=== PATIENT | female | born 1950 | race Caucasian/White ===

== ENCOUNTER 2017-06-09 14:15 | Emergency (ER) | payer MEDICARE, OTHER ==
[~2017-06-09 14:15] MED LIST: LEVAQUIN500 MG PO; METOPROLOL TART25 MG PO; ULTRAM50 MG PO; Z.0.GLIPIZIDE10 MG PO; Z.0.LISINOPRIL10 MG PO; Z.2.METFORMIN HCL500 PO
--- OUTSIDE RECORDS SUMMARY | 2017-06-09 14:17 | XMS REPORT ---
Author Author [facility] Address Unknown Phone Unavailable Care Team Providers Care Professor Of Archaeology Name Role Phone FARA CAMPOS Unavailable Unavailable Problems This patient has no known problems. Allergies, Adverse Reactions, Alerts This patient has no known allergies or adverse reactions. Medications This patient has no known medications. Results Test Description Test Time Test Comments Text Results Atomic Results Result Comments CHEST SINGLE (PORTABLE) [place] [address] Patient Name: PADMAJA BALDWIN MR #: [id number] : 1950 Age/Sex: 66/F Req #: [id number] Adm Physician: Ordered by: FARA CAMPOS MD Report #: [id number] Location: ER Room/Bed: Procedure: [id number] DX/CHEST SINGLE (PORTABLE) Exam Date: 12/11/16 Exam Time: 1815 REPORT STATUS: Signed PROCEDURE: A single AP view of the chest. COMPARISON: [facility], , CHEST 2 VIEWS, 04/30/2016, 16:21. INDICATIONS: SOB, ELEVATED HEART RATE FINDINGS: Lines/tubes: None. Lungs: The lungs are well inflated and clear. There is no evidence of pneumonia or pulmonary edema. Pleura: There is no pleural effusion or pneumothorax. Heart and mediastinum: The heart and the mediastinum are unremarkable. Bones: No acute bony abnormality. IMPRESSION: 1. No acute cardiopulmonary abnormalities. Tono Gallardo M.D. Dictated by: Tono Gallardo M.D. on 12/11/2016 at 19:00 Electronically approved by: Tono Gallardo M.D. on 12/11/2016 at 19:00 Dictated By: TONO GALLARDO MD 99 Transcribed By: KARIME on 12/11/161899 COPY TO: FARA CAMPOS MD CT CHEST W [place] [address] Patient Name: PADMAJA BALDWIN MR #: [id number] : 1950 Age/Sex: 66/F Req # : [id number] Adm Physician: Ordered by: FARA CAMPOS MD Report #: [id number] Location: ER Room/Bed: Procedure: [id number] CT/CT CHEST W Exam Date: 12/11/16 Exam Time: 0 REPORT STATUS: Signed EXAM: CT Chest WITH contrast 12/11/2016 5:57 PM INDICATION: COMPARISON: None TECHNIQUE: Chest was scanned utilizing a multidetector helical scanner from the lung apex through the level of the adrenal glands without administration of IV contrast. Coronal and sagittal reformations were obtained. PE protocol was performed. IV CONTRAST: 100 mL of Omnipaque 300 COMPLICATIONS: None RADIATION DOSE: Total DLP: 570.3 mGy*cm Estimated effective dose : (DLP x 0.014 x size factor) mSv CTDIvol has been reviewed. It is below the limits set by the Radiation Protocol Committee (RPC). FINDINGS: LINES/ TUBES: None. LUNGS AND AIRWAYS: Scattered calcified granulomas. No focal pulmonary consolidations. Central airways are clear. Tiny tracheal diverticulum. No filling defects to the segmental level. PLEURA: The pleural spaces are clear. HEART AND MEDIASTINUM: The thyroid gland is normal. No mediastinal, hilar or axillary lymphadenopathy. Scattered nonspecific subcentimeter mediastinal lymph nodes. Multiple calcified mediastinal lymph nodes related to prior granulomatous disease. The heart is normal in size.. There is no pericardial effusion. Coronary artery and aortic calcifications. Tortuous aorta. Main pulmonary artery measures 2.7 cm in diameter, within normal limits. The ascending aorta measures 3.2 cm in diameter, within normal limits. UPPER ABDOMEN: Calcified granuloma spleen. Otherwise, limited views of the upper abdomen are unremarkable. BONES: No acute or aggressive osseous lesions. SOFT TISSUES: Unremarkable. IMPRESSION: No pulmonary embolism. No acute thoracic abnormalities. Signed by: DR. Graham Alvarado MD on 12/11/2016 8:09 PM Dictated By: GRAHAM ALVARADO MD 08 Transcribed By: SIMRAN on 12/11/162008 COPY TO: FARA CAMPOS MD
== END 2017-06-09 14:47 | disposition left against medical advice (07) ==
LOC: ER 14:15
DX: Z53.21 Procedure and treatment not carried out due to patient leaving prior to being seen by health care provider (principal)

== ENCOUNTER 2020-02-08 15:21 | Emergency (ER) | payer MEDICARE, OTHER ==
[~2020-02-08] VITALS: Ht 162.6 cm; Wt 74.8 kg
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
[2020-02-08] MEDS ORDERED: TRAMADOL HCL 50 MG TAB PO ONE (16:30)
--- OUTSIDE RECORDS SUMMARY | 2020-02-08 16:34 | XMS REPORT | Continuity of Care Document ---
Author Author [facility] t Organization [facility] Address [address] [place] [address] Phone Unavailable Care Team Providers Care Dental Insurance Coordinator Name Role Phone NO, PCP PCP Unavailable Elpidio CAMPOS Attphys Unavailable Payers Payer Name Policy Type Policy Number Effective Date Expiration Date S ource Medicare A & B [id number] 2015 00:00:00 C [facility] [id number] 2002 00:00:00 2015 00:00 :00 [facility] Problems Condition Name Condition Details Condition Category Status Onset Date Resolution Date Last Treatment Date Treating Clinician Comments Source Abdominal pain Abdominal pain Problem Active [facility] Headache Headache Problem Active [facility] Paroxysmal supraventricular tachycardia Paroxysmal SVT (supraventricular tachycardia) Problem Active [facility] Urinary tract infection UTI (urinary tract infection) Problem Active [facility] Allergies, Adverse Reactions, Alerts Allergy Name Allergy Type Status Severity Reaction(s) Onset Date Inacti ve Date Treating Clinician Comments Source No Known Allergies DA Active U 2015-04-09 00:00:00 [facility] DIABETIC DRUG? Allergy to Substance Active Mild 2008-05-20 00:00 :00 [facility] Medications Ordered Medication Name Filled Medication Name Start Date Stop Da te Current Medication? Ordering Clinician Indication Dosage Frequency Signature (SIG) Comments Components Source Metoprolol Tartrate 25 Mg Tablet Metoprolol Tartrate 25 Mg T ablet 2016-12-12 00:00:00 Yes Haritha Hernandez Md 25 Twice A Day [facility] Glipizide 10 Mg Tablet Glipizide 10 Mg Tablet Yes 10 Twice A Day [facility] Levofloxacin (Levaquin) 500 Mg Tablet Levofloxacin (Levaquin) 500 M g Tablet Yes 500 Daily [facility] Lisinopril 10 Mg Tablet Lisinopril 10 Mg Tablet Yes 10 Twice A Day [facility] Metformin Hcl 500 Mg Tablet Metformin Hcl 500 Mg Tablet Yes 500 Twice A Day [facility] Tramadol Hcl (Ultram) 50 Mg Tablet Tramadol Hcl (Ultram) 50 Mg Tablet Yes 50 Every 8 Hours [facility] Procedures Procedure Date / Time Performed Performing Clinician [facility] e Computed tomography of chest with contrast 2016-12-11 00:00:00 FARA HAILE [facility] Encounters Start Date/Time End Date/Time En[facility] Source 2017-06-09 14:15:00 2017-06-09 14:47:00 Departed Emergency Room [facility] [id number] [facility] 2016-12-11 20:41:00 2016-12-12 12:00:00 Discharged Inpatient (obs) FARA SOSA [facility] [id number] [facility] Results Test Description Test Time Test Comments Results Result Comments Source HGBA1C 2018-10-25 00:22:00 Test Item GLYCOSYLATED HEMOGLOBIN (HA1C) (test code = GLYHGB) 7.6 % HbA1 4. 8-6.0 H ESTIMATED AVERAGE GLUCOSE (test code = EAG) 171 MG/DL COMPREHENSIVE METABOLIC [id number] 00:22:00* Test Item Value Reference Range Interpretation Comments SODIUM (test code = NA) 137 mmol/L 136-145 N POTASSIUM (test code = K) 4.1 mmol/L 3.5-5.1 N CHLORIDE (test code = CL) 103.0 mmol/L 98-107 N CARBON DIOXIDE (test code = CO2) 27.0 mmol/L 21-32 N ANION GAP (test code = GAP) 11.1 10-20 N GLUCOSE (test code = GLU) 126 mg/dL 74-106 H BLOOD UREA NITROGEN (test code = BUN) 16 mg/dL 7-18 N GLOMERULAR FILTRATION RATE (test code = GFR) > 60 mL/min >=60 Estimated GFR by using Modified MDRD formula.Chronic kidney disease is defined as either kidney damageor GFR <60 mL/min/1.73 m2 for >3 months. CREATININE (test code = CREAT) 0.90 mg/dL 0.55-1.02 N Note change in reference range due to change in reagent. BUN/CREATININE RATIO (test code = BUN/CREA) 17.3 10-20 N TOTAL PROTEIN (test code = PROT) 7.9 gram/dL 6.4-8.2 N ALBUMIN (test code = ALB) 3.9 g/dL 3.4-5.0 N GLOBULIN (test code = GLOB) 4.0 gram/dL 2.7-4.2 N ALBUMIN/GLOBULIN RATIO (test code = A/G) 1.0 0.75-1.50 N CALCIUM (test code = CA) 9.3 mg/dL 8.5-10.1 N BILIRUBIN TOTAL (test code = BILT) 0.20 mg/dL 0.0-1.0 N SGOT/AST (test code = AST) 17 IUnit/L 15-37 N SGPT/ALT (test code = ALT) 28 IUnit/L 12-78 N ALKALINE PHOSPHATASE TOTAL (test code = ALKP) 65 IUnit/L 45-117 N Note change in reference range due to change in reagent. THYROID PROFILE [id number] 00:22:00* Test Item Value Reference Range Interpretation Comments T3 UPTAKE (test code = T3UP) 34.0 % 30.0-40.0 N T4 (THYROXINE) (test code = T4) 8.0 ug/dL 4.5-13.9 N T7 (FREE THYROXINE INDEX) (test code = T7) 2.72 FTI 1.3-5.1 N THYROID STIMULATING HORMONE (test code = TSH) 1.470 uIU/mL 0.36-3.7 4 N TSH REFERENCE RANGES: EUTHYROID: 0.35 - 4.3 mIU/mL HYPO : > 5.5 mIU/mL HYPER : < 0.35 mIU/mL COMPREHENSIVE METABOLIC [id number] 00:09:00* Test Item Value Reference Range Interpretation Comments SODIUM (test code = NA) 137 mmol/L 136-145 N POTASSIUM (test code = K) 4.1 mmol/L 3.5-5.1 N CHLORIDE (test code = CL) 103.0 mmol/L 98-107 N CARBON DIOXIDE (test code = CO2) mmol/L 21-32 ANION GAP (test code = GAP) 10-20 GLUCOSE (test code = GLU) mg/dL 74-106 BLOOD UREA NITROGEN (test code = BUN) mg/dL 7-18 GLOMERULAR FILTRATION RATE (test code = GFR) mL/min >=60 CREATININE (test code = CREAT) mg/dL 0.55-1.02 BUN/CREATININE RATIO (test code = BUN/CREA) 10-20 TOTAL PROTEIN (test code = PROT) gram/dL 6.4-8.2 ALBUMIN (test code = ALB) g/dL 3.4-5.0 GLOBULIN (test code = GLOB) gram/dL 2.7-4.2 ALBUMIN/GLOBULIN RATIO (test code = A/G) 0.75-1.50 CALCIUM (test code = CA) mg/dL 8.5-10.1 BILIRUBIN TOTAL (test code = BILT) mg/dL 0.0-1.0 SGOT/AST (test code = AST) IUnit/L 15-37 SGPT/ALT (test code = ALT) IUnit/L 12-78 ALKALINE PHOSPHATASE TOTAL (test code = ALKP) IUnit/L 45-117 THYROID PROFILE [id number] 00:09:00* Test Item Value Reference Range Interpretation Comments T3 UPTAKE (test code = T3UP) % 30.0-40.0 T4 (THYROXINE) (test code = T4) ug/dL 4.5-13.9 T7 (FREE THYROXINE INDEX) (test code = T7) FTI 1.3-5.1 THYROID STIMULATING HORMONE (test code = TSH) uIU/mL 0.36-3.7 4 CBC W/AUTO [id number] 23:54:00* Test Item Value Reference Range Interpretation Comments WHITE BLOOD CELL (test code = WBC) 7.8 K/mm3 4.5-12.5 N RED BLOOD CELL (test code = RBC) 4.18 mill/mm3 3.7-5.2 N HEMOGLOBIN (test code = HGB) 12.7 gram/dL 11.5-15.5 N HEMATOCRIT (test code = HCT) 39.4 % 36.0-46.0 N MEAN CELL VOLUME (test code = MCV) 94.3 fL 80-98 N MEAN CELL HGB (test code = MCH) 30.4 picogram 27.0-33.0 N MEAN CELL HGB CONCETRATION (test code = MCHC) 32.2 gram/dL 33.0-36. 0 L RED CELL DISTRIBUTION WIDTH (test code = RDW) 13.0 % 11.6-16. 2 N RED CELL DISTRIBUTION WIDTH SD (test code = RDW-SD) 44.6 fL 37 .0-51.0 N PLATELET COUNT (test code = PLT) 301 K/mm3 150-450 N MEAN PLATELET VOLUME (test code = MPV) 9.5 fL 6.7-11.0 N NEUTROPHIL % (test code = NT%) 40.3 % 39.0-69.0 N IMMATURE GRANULOCYTE % (test code = IG%) 0.4 % 0.0-5.0 N LYMPHOCYTE % (test code = LY%) 42.7 % 25.0-55.0 N MONOCYTE % (test code = MO%) 9.7 % 0.0-10.0 N EOSINOPHIL % (test code = EO%) 5.9 % 0.0-5.0 H BASOPHIL % (test code = BA%) 1.0 % 0.0-1.0 N NUCLEATED RBC % (test code = NRBC%) 0.0 % 0-0 N NEUTROPHIL # (test code = NT#) 3.16 K/mm3 1.8-7.7 N IMMATURE GRANULOCYTE # (test code = IG#) 0.03 x10 3/uL 0-0.03 N LYMPHOCYTE # (test code = LY#) 3.34 K/mm3 1.0-5.0 N MONOCYTE # (test code = MO#) 0.76 K/mm3 0-0.8 N EOSINOPHIL # (test code = EO#) 0.46 K/mm3 0.0-0.5 N BASOPHIL # (test code = BA#) 0.08 K/mm3 0.0-0.2 N NUCLEATED RBC # (test code = NRBC#) 0.00 K/mm3 0.0-0.1 N MANUAL DIFF REQUIRED (test code = MDIFF) NO CBC W/AUTO [id number] 23:52:00* Test Item Value Reference Range Interpretation Comments WHITE BLOOD CELL (test code = WBC) K/mm3 4.5-12.5 RED BLOOD CELL (test code = RBC) mill/mm3 3.7-5.2 HEMOGLOBIN (test code = HGB) 12.7 gram/dL 11.5-15.5 N HEMATOCRIT (test code = HCT) 39.4 % 36.0-46.0 N MEAN CELL VOLUME (test code = MCV) fL 80-98 MEAN CELL HGB (test code = MCH) picogram 27.0-33.0 MEAN CELL HGB CONCETRATION (test code = MCHC) gram/dL 33.0-36. 0 RED CELL DISTRIBUTION WIDTH (test code = RDW) % 11.6-16. 2 RED CELL DISTRIBUTION WIDTH SD (test code = RDW-SD) fL 37 .0-51.0 PLATELET COUNT (test code = PLT) K/mm3 150-450 MEAN PLATELET VOLUME (test code = MPV) fL 6.7-11.0 NEUTROPHIL % (test code = NT%) % 39.0-69.0 IMMATURE GRANULOCYTE % (test code = IG%) % 0.0-5.0 LYMPHOCYTE % (test code = LY%) % 25.0-55.0 MONOCYTE % (test code = MO%) % 0.0-10.0 EOSINOPHIL % (test code = EO%) % 0.0-5.0 BASOPHIL % (test code = BA%) % 0.0-1.0 NEUTROPHIL # (test code = NT#) K/mm3 1.8-7.7 LYMPHOCYTE # (test code = LY#) K/mm3 1.0-5.0 MONOCYTE # (test code = MO#) K/mm3 0-0.8 EOSINOPHIL # (test code = EO#) K/mm3 0.0-0.5 BASOPHIL # (test code = BA#) K/mm3 0.0-0.2 Creatine Kinase [id number] 11:13:00* Test Item Value Reference Range Interpretation Comments Creatine Kinase MB (test code = 49180-9) 0.90 0.00-5.00 [facility]rop[facility] [id number] 11:13:00* Test Item Value Reference Range Interpretation Comments Troponin I (test code = BWY5898) 0.016 0-0.300 [facility] PasoCreatine Lssqai7873-06-23 11:03:00* Test Item Value Reference Range Interpretation Comments Creatine Kinase (test code = 2157-6) 33 29-168 [facility] PasoHemoglobin A1c Nzwkihh2512-21-40 09:03:00 * Test Item Value Reference Range Interpretation Comments Hemoglobin A1c Percent (test code = Hemoglobin A1c Percent) 6.2 4.0-7.0 [facility] PasoBedside Yqyzupc5286-03-91 08:13:00* Test Item Value Reference Range Interpretation Comments Bedside Glucose (test code = 84945-4) 118 70-120 Meter ID: [id number] [facility] PasoWhite Blood Count 2016-12-12 07:03:00* Test Item Value Reference Range Interpretation Comments White Blood Count (test code = 6690-2) 6.59 4.8-10.8 [facility] PasoRed Blood Aewda6157-77-84 07:03:00* Test Item Value Reference Range Interpretation Comments Red Blood Count (test code = 789-8) 3.81 3.6-5.1 [facility]Hemoglobin2017-08-25 07:03:00* Test Item Value Reference Range Interpretation Comments Hemoglobin (test code = 71364-9) 11.8 12.0-16.0 L [facility]Hematocrit2017-08-25 07:03:00* Test Item Value Reference Range Interpretation Comments Hematocrit (test code = 4544-3) 35.7 34.2-44.1 [facility] PasoMean Corpuscular Zdrsox9633-27-63 07:03:00* Test Item Value Reference Range Interpretation Comments Mean Corpuscular Volume (test code = 787-2) 93.7 81-99 [facility] PasoMean Corpuscular Cjxouisqgx0363-57-50 07:03:00* Test Item Value Reference Range Interpretation Comments Mean Corpuscular Hemoglobin (test code = 785-6) 31.0 28-32 [facility] PasoMean Corpuscular Hemoglobin Concent 2016-12-12 07:03:00* Test Item Value Reference Range Interpretation Comments Mean Corpuscular Hemoglobin Concent (test code = 786-4) 33.1 31-35 [facility] PasoRed Cell Distribution [id number] 07:03:00* Test Item Value Reference Range Interpretation Comments Red Cell Distribution Width (test code = 98678-4) 12.6 11.7 -14.4 [facility] PasoPlatelet [id number] 07:03:00* Test Item Value Reference Range Interpretation Comments Platelet Count (test code = 777-3) 236 140-360 [facility] PasoNeutrophils (%) (Auto)2016-12-12 07:03:00 * Test Item Value Reference Range Interpretation Comments Neutrophils (%) (Auto) (test code = 88892-4) 42.2 38.7-80.0 [facility] PasoLymphocytes (%) (Auto)2016-12-12 07:03:00 * Test Item Value Reference Range Interpretation Comments Lymphocytes (%) (Auto) (test code = 736-9) 40.8 18.0-39.1 H [facility] PasoMonocytes (%) (Auto)2016-12-12 07:03:00* Test Item Value Reference Range Interpretation Comments Monocytes (%) (Auto) (test code = 5905-5) 11.7 4.4-11.3 H [facility] PasoEosinophils (%) (Auto)2016-12-12 07:03:00 * Test Item Value Reference Range Interpretation Comments Eosinophils (%) (Auto) (test code = 713-8) 4.1 0.0-6.0 [facility] PasoBasophils (%) (Auto)2016-12-12 07:03:00* Test Item Value Reference Range Interpretation Comments Basophils (%) (Auto) (test code = 706-2) 0.9 0.0-1.0 [facility] PasoIM GRANULOCYTES %2016-12-12 07:03:00* Test Item Value Reference Range Interpretation Comments IM GRANULOCYTES % (test code = IM GRANULOCYTES %) 0.3 0.0- 1.0 [facility] PasoNeutrophils # (Auto)2016-12-12 07:03:00* Test Item Value Reference Range Interpretation Comments Neutrophils # (Auto) (test code = 751-8) 2.8 2.1-6.9 [facility] PasoLymphocytes # (Auto)2016-12-12 07:03:00* Test Item Value Reference Range Interpretation Comments Lymphocytes # (Auto) (test code = 31884-8) 2.7 1.0-3.2 [facility] PasoMonocytes # (Auto)2016-12-12 07:03:00* Test Item Value Reference Range Interpretation Comments Monocytes # (Auto) (test code = 742-7) 0.8 0.2-0.8 [facility] PasoEosinophils # (Auto)2016-12-12 07:03:00* Test Item Value Reference Range Interpretation Comments Eosinophils # (Auto) (test code = 711-2) 0.3 0.0-0.4 [facility] PasoBasophils # (Auto)2016-12-12 07:03:00* Test Item Value Reference Range Interpretation Comments Basophils # (Auto) (test code = 704-7) 0.1 0.0-0.1 [facility] PasoAbsolute Immature Granulocyte (auto 2016-12-12 07:03:00* Test Item Value Reference Range Interpretation Comments Absolute Immature Granulocyte (auto (mannie t code = Absolute Immature Granulocyte (auto) 0.02 0-0.1 [facility]landsodium Lavwu7781-13-67 06:52:00* Test Item Value Reference Range Interpretation Comments Sodium Level (test code = 2951-2) 137 136-145 [facility] PasoPotassium Ppwao4387-79-11 06:52:00* Test Item Value Reference Range Interpretation Comments Potassium Level (test code = 2823-3) 4.0 3.5-5.1 [facility] PasoChloride Alumu3060-16-30 06:52:00* Test Item Value Reference Range Interpretation Comments Chloride Level (test code = 2075-0) 107 98-107 [facility] PasoCarbon Dioxide Kjdhd7985-74-96 06:52:00* Test Item Value Reference Range Interpretation Comments Carbon Dioxide Level (test code = 2028-9) 21 22-29 L [facility] PasoAnion Llx2251-93-18 06:52:00* Test Item Value Reference Range Interpretation Comments Anion Gap (test code = 40557-8) 13.0 8-16 [facility] PasoBlood Urea Lhybdsnx8441-93-93 06:52:00* Test Item Value Reference Range Interpretation Comments Blood Urea Nitrogen (test code = 3094-0) 15 7-26 [facility] PasoCreatinine2017-08-25 06:52:00* Test Item Value Reference Range Interpretation Comments Creatinine (test code = 2160-0) 0.71 0.57-1.11 [facility] PasoBUN/Creatinine Vuqtl6043-22-99 06:52:00* Test Item Value Reference Range Interpretation Comments BUN/Creatinine Ratio (test code = 3097-3) 21 6 [facility] PasoEstimat Glomerular Filtration Rate 2016-12-12 06:52:00* Test Item Value Reference Range Interpretation Comments Estimat Glomerular Filtration Rate (test code = 49796-0) 60- >60 Ranges were taken from the National Kidney Disease Education Program and the [facility] Kid[facility] Foundation literature.Reference ranges:60 or greater: Gsidbg32-35 ( for 3 consecutive months): Chronic kidney disease 15 or less: Kidney failureFoundation Surgical Hospital of El PasoGlucose Eccoa1334-05-26 06:52:00* Test Item Value Reference Range Interpretation Comments Glucose Level (test code = AGI1165) 118 74-118 [facility] PasoCalcium Mqnbs3616-95-17 06:52:00* Test Item Value Reference Range Interpretation Comments Calcium Level (test code = 37474-2) 8.9 8.4-10.2 [facility] PasoTotal Qyhbekvii7769-35-80 06:52:00* Test Item Value Reference Range Interpretation Comments Total Bilirubin (test code = 1975-2) 0.2 0.2-1.2 [facility] PasoAspartate Amino Transf (AST/SGOT) 2016-12-12 06:52:00* Test Item Value Reference Range Interpretation Comments Aspartate Amino Transf (AST/SGOT) (test code = Aspartate Amino Transf (AST/SGOT)) 14 5-34 [facility] PasoAlanine Aminotransferase (ALT/SGPT) 2016-12-12 06:52:00* Test Item Value Reference Range Interpretation Comments Alanine Aminotransferase (ALT/SGPT) (test code = 1742-6) 18 0-55 [facility] Rdyiwfs8153-63-18 06:52:00* Test Item Value Reference Range Interpretation Comments Total Protein (test code = 2885-2) 6.4 6.5-8.1 L [facility] PasoAlbumin2017-08-25 06:52:00* Test Item Value Reference Range Interpretation Comments Albumin (test code = 1751-7) 3.3 3.5-5.0 L [facility] PasoGlobulin2017-08-25 06:52:00* Test Item Value Reference Range Interpretation Comments Globulin (test code = 06156-0) 3.1 2.3-3.5 [facility] PasoAlbumin/Globulin Pfotz0825-66-92 06:52:00 * Test Item Value Reference Range Interpretation Comments Albumin/Globulin Ratio (test code = 1759-0) 1.1 0.8-2.0 [facility] PasoAlkaline Auuiezkympw0347-81-48 06:52:00* Test Item Value Reference Range Interpretation Comments Alkaline Phosphatase (test code = 6768-6) 50 40-150 [facility] PasoTriglycerides Jbmfw3634-29-47 21:04:00* Test Item Value Reference Range Interpretation Comments Triglycerides Level (test code = 2571-8) 300 0-149 H [facility] PasoCholesterol Rloil9330-47-22 21:04:00* Test Item Value Reference Range Interpretation Comments Cholesterol Level (test code = 2093-3) 203 0-199 H Less than 200 mg/dL Low Sniv410 - 239 mg/dL Borderline Lbtx294 m g/dl and greater High Risk [facility] PasoLDL Ysnjmhsngvf9740-57-41 21:04:00* Test Item Value Reference Range Interpretation Comments LDL Cholesterol (test code = 26654-8) 92 60-130 [facility] PasoHDL Dwffzhtvlyz6414-87-83 21:04:00* Test Item Value Reference Range Interpretation Comments HDL Cholesterol (test code = 2085-9) 51 40-60 [facility] PasoCholesterol/HDL Xvrgy4756-19-46 21:04:00 * Test Item Value Reference Range Interpretation Comments Cholesterol/HDL Ratio (test code = 9830-1) 4.0 3.0-3.6 H [facility] PasoUrine [id number] 19:08:00* Test Item Value Reference Range Interpretation Comments Urine WBC (test code = 5821-4) 0-5 0-5 [facility] PasoUrine [id number] 19:08:00* Test Item Value Reference Range Interpretation Comments Urine RBC (test code = 85075-9) 0-5 0-5 [facility] PasoUrine Dqgofdhr1496-90-28 19:08:00* Test Item Value Reference Range Interpretation Comments Urine Bacteria (test code = 23628-1) RARE NONE [facility] PasoUrine Epithelial Sqfxc2961-96-67 19:08:00 * Test Item Value Reference Range Interpretation Comments Urine Epithelial Cells (test code = 88657-0) RARE NONE [facility] PasoB-Type Natriuretic Rbywvnu9240-26-93 19:03:00* Test Item Value Reference Range Interpretation Comments B-Type Natriuretic Peptide (test code = 03855-4) 15.5 0-100 [facility] PasoActivated Partial Thromboplast Time 2016-12-11 18:56:00* Test Item Value Reference Range Interpretation Comments Activated Partial Thromboplast Time (test code = 96443-0) 33.0 23.8-35.5 [facility] PasoProthrombin Yeft5063-97-83 18:47:00* Test Item Value Reference Range Interpretation Comments Prothrombin Time (test code = 5902-2) 11.8 11.9-14.5 L [facility] PasoProthromb Time International Ratio 2016-12-11 18:47:00* Test Item Value Reference Range Interpretation Comments Prothromb Time International Ratio (test code = 6301-6) 0.83 Oral Anticoagulant Therapy INR Values:1. Low Intensity Therapy 1.5 - 2.02 . Moderate Intensity Therapy 2.0 - 3.03. High Intensity Therapy(1) 2.5 - 3. 54. High Intensity Therapy(2) 3.0 - 4.05. Panic Value INR > 5.0 [facility] PasoUrine Bqqvn4044-98-28 18:38:00* Test Item Value Reference Range Interpretation Comments Urine Color (test code = 5778-6) YELLOW YELLOW [facility] PasoUrine Rflbxiv8527-85-00 18:38:00* Test Item Value Reference Range Interpretation Comments Urine Clarity (test code = 92192-8) CLEAR CLEAR [facility] PasoUrine Specific Exydyka1897-80-53 18:38:00 * Test Item Value Reference Range Interpretation Comments Urine Specific [place] (test code = 5811-5) 1.015 1.010-1.02 5 [facility] PasoUrine [id number] 18:38:00* Test Item Value Reference Range Interpretation Comments Urine pH (test code = 71001-1) 6 5-7 [facility] PasoUrine Leukocyte Wqlimgps5421-98-94 18:38:00* Test Item Value Reference Range Interpretation Comments Urine Leukocyte Esterase (test code = 5799-2) NEGATIVE NEGATIVE [facility] PasoUrine Mypjbec6168-46-81 18:38:00* Test Item Value Reference Range Interpretation Comments Urine Nitrite (test code = 81515-9) NEGATIVE NEGATIVE [facility] PasoUrine Jpzirgg2035-37-75 18:38:00* Test Item Value Reference Range Interpretation Comments Urine Protein (test code = 5804-0) NEGATIVE NEGATIVE [facility] PasoUrine Glucose (UA)2016-12-11 18:38:00* Test Item Value Reference Range Interpretation Comments Urine Glucose (UA) (test code = 2349-9) NEGATIVE NEGATIVE [facility] PasoUrine Bdmcmws1182-50-90 18:38:00* Test Item Value Reference Range Interpretation Comments Urine Ketones (test code = 11642-4) NEGATIVE NEGATIVE [facility] PasoUrine Eneyjjokwyjy3789-18-31 18:38:00* Test Item Value Reference Range Interpretation Comments Urine Urobilinogen (test code = 03105-9) 0.2 0.2-1 [facility] PasoUrine Afzcnvesh7394-27-90 18:38:00* Test Item Value Reference Range Interpretation Comments Urine Bilirubin (test code = 1978-6) NEGATIVE NEGATIVE [facility] PasoUrine Gayso8724-19-29 18:38:00* Test Item Value Reference Range Interpretation Comments Urine Blood (test code = 88261-1) NEGATIVE NEGATIVE [facility] PasoCHEST [facility]INGLE ([facility]ABLE) [place] [address] Patient Name: PADMAJA BALDWIN MR #: [id number] : 1950 Age/Sex: 66/F Req #: [id number] Adm Physician: Ordered by: FARA CAMPOS MD Report #: [id number] Location: ER Room/Bed: Procedure: [id number] DX/CHEST SINGLE (PORTABLE) Ex am Date: 12/11/16 Exam Time: 1815 REPORT STATUS : Signed PROCEDURE: A single AP view of the chest. COMPARISON: [facility], DX, CHEST 2 VIEWS, 04/30/2016, 16:21. INDICATIONS: SOB, ELEVATED HEART RATE FINDINGS: Lines/tubes: None. Lungs: The lungs are well inflated and clear. There is no evidence of pneumonia or pulmonary edema. Pleura: There is no pleural effusion or pneumothorax. Heart and mediastinum: The heart and the mediastinum are unremarkable. Bones: No acute bony abnormality. IMPRESSION: 1. No acute cardi opulmonary abnormalities. Tono Gallardo M.D. Dictated by: Eileen Gallardo M.D. on 12/11/2016 at 19:00 Electronically approved by: Tono Gallardo M.D. on 12/11/2016 at 19:00 Dictated By: RAMU GALLARDO MD 99 Tr anscribed By: KARIME on 12/11/161899 COPY TO: AFRA CAMPOS MD CT CHEST W [place] [address] Patient Name: PADMAJA BALDWIN MR #: [id number] : 1950 Age/Sex: 66/F Req #: [id number] Adm Physician: Ordered by: FARA CAMPOS MD Report #: [id number] Location: ER Room/Bed: Procedure: [id number] CT/CT CHEST W Exam Date: 11/19 08/04 Exam Time: 1919 REPORT STATUS: Signed E XAM: CT Chest WITH contrast 12/11/2016 5:57 PM INDICATION: COM PARISON: None TECHNIQUE: Chest was scanned utilizing a multidetector anjali lynn scanner from the lung apex through the level of the adrenal glands without administration of IV contrast. Coronal and sagittal reformations were obtaine d. PE protocol was performed. IV CONTRAST: 100 mL of Omnipaque 300 C OMPLICATIONS: None RADIATION DOSE: Total DLP: 570.3 mGy*cm E stimated effective dose: (DLP x 0.014 x size factor) mSv CTDIvol has been reviewed. It is below the limits set by the Radiation Protocol Committee (RPC ). FINDINGS: LINES/ TUBES: None. LUNGS AND AIRWAYS: Scattered ca lcified granulomas. No focal pulmonary consolidations. Central airways are cl ear. Tiny tracheal diverticulum. No filling defects to the segmental level. PLEURA: The pleural spaces are clear. HEART AND MEDIASTINUM: The thyroid gland is normal. No mediastinal, hilar or axillary lymphadenopathy. Scattered nonspecific subcentimeter mediastinal lymph nodes. Multiple calcified medias tinal lymph nodes related to prior granulomatous disease. The heart is normal in size.. There is no pericardial effusion. Coronary artery and aortic calcif ications. Tortuous aorta. Main pulmonary artery measures 2.7 cm in diameter, w ithin normal limits. The ascending aorta measures 3.2 cm in diameter, within n ormal limits. UPPER ABDOMEN: Calcified granuloma spleen. Otherwise, limited views of the upper abdomen are unremarkable. BONES: No acute or aggressi ve osseous lesions. SOFT TISSUES: Unremarkable. IMPRESSION: No pulm onary embolism. No acute thoracic abnormalities. Signed by: DR. Graham Alvarado MD on 12/11/2016 8:09 PM Dictated By: GRAHAM ALVARADO MD [employer] Signed By: GRAHAM ALVARADO MD on 12/11/162008 Transcribed By: SIMRAN on 2008 COPY TO: FARA CAMPOS MD
--- NOTE | 2020-02-08 18:30 | Diagnostic Imaging Report ---
Cervical Spine, 3 views HISTORY: Neck pain. COMPARISON: None. FINDINGS: Alignment: Normal. Vertebral bodies: No acute fracture. Intervertebral disc spaces: There is multilevel degenerative disc disease with osteophytosis. Facet: Multilevel facet arthrosis. Visualized odontoid: Normal. Prevertebral soft tissues: Normal. Others: The partially imaged lung apices are clear. IMPRESSION: Cervical spondylosis with multilevel degenerative disc disease. No acute fracture or malalignment. Signed by: Gurpreet Escalante MD on 02/08/2020 6:27 PM
--- NOTE | 2020-02-08 18:31 | Diagnostic Imaging Report ---
X-ray shoulder 2 views. HISTORY: Pain. COMPARISON: None available. FINDINGS: Bones: The bones are diffusely demineralized. No acute displaced fracture. Osseous alignment is within normal limits. Joints: The joint spaces are well-maintained. Soft tissues: The soft tissues appear unremarkable. Others: The partially imaged left hemithorax is clear. IMPRESSION: No acute radiographic abnormality. Signed by: Gurpreet Escalante MD on 02/08/2020 6:28 PM
[2020-02-08 18:57] VITALS: BP 121/80
== END 2020-02-08 18:58 | disposition home or self-care (01) ==
LOC: ER 16:30
DX: S13.4XXA Sprain of ligaments of cervical spine, initial encounter (principal); M25.512 Pain in left shoulder; M25.522 Pain in left elbow; V43.62XA Car passenger injured in collision with other type car in traffic accident, initial encounter; Y92.488 Other paved roadways as the place of occurrence of the external cause
CPT/HCPCS: 72050; 99284

== ENCOUNTER 2020-03-30 10:15 | Observation (INO) | payer MEDICARE, OTHER ==
[~2020-03-30] VITALS: Ht 162.6 cm; Wt 74.8 kg
[2020-03-30] MEDS ORDERED: PIPER-TAZ 3.375 GM 50 ML IV STA (11:51)
[2020-03-30] MEDS ORDERED: CEFEPIME HCL 1 GM VIAL IV SCH (12:00)
[2020-03-30 12:23] LABS: BASOPHILS # (AUTO) 0.1 (0.0-0.1); BASOPHILS % 1.1 % (0.0-1.0); EOSINOPHILS # (AUTO) 0.5 (0.0-0.4); EOSINOPHILS % 6.8 % (0.0-6.0); HEMATOCRIT 40.5 % (34.2-44.1); LYMPHOCYTES # (AUTO) 1.9 (1.0-3.2); LYMPHOCYTES % 29.1 % (18.0-39.1); MEAN CORPUSCULAR HEMOGLOBIN 30.5 pg (28-32); MEAN CORPUSCULAR HGB CONC 32.1 g/dL (31-35); MEAN CORPUSCULAR VOLUME 95.1 fL (81-99); MONOCYTES # (AUTO) 0.7 (0.2-0.8); MONOCYTES % 9.9 % (4.4-11.3); NEUTROPHILS # (AUTO) 3.5 (2.1-6.9); NEUTROPHILS % 52.8 % (38.7-80.0); PLATELET COUNT 288 x10e3/uL (140-360); RED BLOOD COUNT 4.26 x10e6/uL (3.6-5.1); RED CELL DISTRIBUTION WIDTH 12.8 % (11.7-14.4)
[2020-03-30 12:52] LABS: ALANINE AMINOTRANSFERASE 39 IU/L (0-55); ALBUMIN 4.1 g/dL (3.5-5.0); ALKALINE PHOSPHATASE 71 IU/L (40-150); ANION GAP 12.9 mmol/L (8-16); BLOOD UREA NITROGEN 16 mg/dL (7-26); BUN/CREATININE RATIO 20 (6-25); CALCIUM 9.9 mg/dL (8.4-10.2); CARBON DIOXIDE 26 mmol/L (22-29); CHLORIDE 100 mmol/L (98-107); CREATINE KINASE 52 IU/L (29-168); CREATININE, SERUM 0.82 mg/dL (0.57-1.11); EST GLOMERULAR FILTRATION RATE > 60 ML/MIN (60-); GLUCOSE 195 mg/dL (74-118); POTASSIUM 4.9 mmol/L (3.5-5.1); SODIUM 134 mmol/L (136-145)
[2020-03-30] MEDS ORDERED: SODIUM CHLORIDE 0.9% 50ML 50 ML ONE (13:40)
[2020-03-30] MEDS ORDERED: IOPAMIDOL 370 MG/ML 200 ML INFUS..BTL INJ ONE (13:40)
[2020-03-30] MEDS ORDERED: CEFEPIME 1GM/NS 0.9% 50 ML 50 ML IV SCH (14:00)
[2020-03-30] MEDS ORDERED: DOCUSATE SODIUM 100 MG CAP PO PRN (15:45)
[2020-03-30 16:37] LABS: CHOL/HDL RATIO 2.5 (3.0-3.6)
[2020-03-30] MEDS ORDERED: LISINOPRIL 10 MG TAB PO SCH (17:00)
[2020-03-30] MEDS ORDERED: ZOLPIDEM TARTRATE 5 MG TAB PO PRN (21:00)
[2020-03-30] MEDS ORDERED: TRAMADOL HCL 50 MG TAB PO SCH (22:00)
[2020-03-31] MEDS ORDERED: PANTOPRAZOLE SOD 40 MG TABEC PO SCH (09:00)
[2020-03-31] MEDS ORDERED: DULOXETINE HCL 30 MG DELAYED RELEASE PO SCH (09:00)
[2020-03-31] MEDS ORDERED: LIDOCAINE 4% PATCH TP SCH (09:00)
== END 2020-03-30 16:46 | disposition home or self-care (01) ==
LOC: ER 10:20 → ERHOLD 13:28
PROVIDERS: ADMIT Internal Medicine; ATTEND Internal Medicine
DX: L03.115 Cellulitis of right lower limb (principal); Z20.828 Contact with and (suspected) exposure to other viral communicable diseases
CPT/HCPCS: 36415; 73562; 73701; 80053; 80061; 82550; 82553; 83036; 83605; 84484; 85025; 86140; 87040; 99284; G0378; Q9967